=== PATIENT | female | born 1935 | race Caucasian/White ===

== ENCOUNTER 2023-10-04 17:22 | Inpatient (IN) | payer MEDICARE, OTHER ==
[~2023-10-04] VITALS: Ht 160 cm; Wt 39.0 kg
[2023-10-04] MEDS: IV NORMAL SALINE 500 ML BAG IV ONE (18:12)
[2023-10-04 18:15] LABS: BASOPHILS # (AUTO) 0.4 K/UL (0.0-0.2); BASOPHILS % (AUTO) 1.4 % (0.0-2.0); EOSINOPHILS # (AUTO) 0.2 K/uL (0.0-0.7); EOSINOPHILS % (AUTO) 0.8 % (0.0-7.0); HEMATOCRIT 22.3 % (31.2-41.9); LYMPHOCYTES # (AUTO) 1.1 K/uL (0.8-4.8); LYMPHOCYTES % (AUTO) 4.2 % (20.5-51.5); MEAN CORPUSCULAR HEMOGLOBIN 30.5 uug (24.7-32.8); MEAN CORPUSCULAR HGB CONC 32 g/dL (32.3-35.6); MEAN CORPUSCULAR VOLUME 95.6 fL (75.5-95.3); MONOCYTES # (AUTO) 0.9 K/uL (0.1-1.30); MONOCYTES % (AUTO) 3.5 % (0.0-11.0); NEUTROPHILS # (AUTO) 23.2 K/uL (1.8-8.9); NEUTROPHILS % (AUTO) 90.1 % (38.5-71.5); PLATELET COUNT (AUTO) 178 K/uL (179-408); RED CELL DISTRIBUTION WIDTH 20.5 % (12.3-17.7); WHITE BLOOD COUNT (AUTO) 25.8 K/uL (3.8-11.8)
[2023-10-04 18:22] LABS: CALCIUM 7.8 mg/dL (8.5-10.1); CARBON DIOXIDE 19 mmol/L (21-32); CHLORIDE 106 mmol/L (98-107); CREATININE 2.2 mg/dL (0.6-1.3); GLUCOSE 108 mg/dL (74-106); SODIUM SERUM 138 mmol/L (136-145); UREA NITROGEN, BLOOD 27 mg/dL (7-18)
[2023-10-04 18:34] LABS: DIFFERENTIAL COMMENT 1; RED BLOOD CELL COUNT(AUTO) 2.34 MIL/uL (3.63-4.92)
[2023-10-04 18:35] LABS: ALANINE AMINOTRANSFERASE 38 U/L (14-59); ALBUMIN 2.8 g/dL (3.4-5.0); ALKALINE PHOSPHATASE 451 U/L (50-136); ASPARTATE AMINOTRANSFERASE 28 U/L (15-37); BILIRUBIN,TOTAL 0.5 mg/dL (0.2-1.0); NT-PRO BNP 902 pg/mL (0-125)
[2023-10-04 18:36] LABS: HEMOGLOBIN 7.1 g/dL (10.9-14.3)
[2023-10-04] MEDS: IV NORMAL SALINE 1000 ML BAG IV ONE (19:29)
[2023-10-04] MEDS ORDERED: ONDA-104 PO (21:41)
[2023-10-04] MEDS ORDERED: ALPR0.255 PO (21:41)
[2023-10-04] MEDS ORDERED: FURO40TA5 PO (21:41)
[2023-10-04] MEDS ORDERED: EZET10TA15 PO (21:41)
[2023-10-04] MEDS ORDERED: OMEP40CA21 PO (21:41)
[2023-10-04] MEDS ORDERED: PROP20TA7 PO (21:41)
[2023-10-04] MEDS ORDERED: SENN8.6T19 PO (21:41)
[2023-10-04] MEDS ORDERED: LOSA50TA39 PO (21:41)
[2023-10-04] MEDS ORDERED: BISA5TAB10 PO (21:41)
[2023-10-04] MEDS ORDERED: ASPI81TA31 PO (21:41)
[2023-10-04] MEDS ORDERED: SERT25TA PO (21:41)
[2023-10-04] MEDS ORDERED: SUCR1TAB PO (21:41)
[2023-10-04] MEDS ORDERED: MEGE400O5 PO (21:41)
[2023-10-04] MEDS ORDERED: AMLO10TA59 PO (21:41)
[2023-10-04] MEDS ORDERED: QUET100T PO (21:41)
[2023-10-04] MEDS ORDERED: HYDR500C2 PO (21:41)
[2023-10-04] MEDS ORDERED: VIT1TABL46 PO (21:41)
[2023-10-04] MEDS ORDERED: BISACODYL 5 MG TABLET.DR PO PRN (22:30)
[2023-10-04] MEDS ORDERED: TEMAZEPAM 15 MG CAPSULE PO PRN (22:30)
[2023-10-04] MEDS ORDERED: ONDANSETRON 4 MG/2 ML VIAL IV PRN (22:30)
[2023-10-04] MEDS ORDERED: ALPRAZOLAM 0.25 MG TABLET PO SCH (22:30)
[2023-10-04] MEDS: IV NS 1000 ML 1,000 ML IV PRN (23:40)
[2023-10-04] MEDS: ACETAMINOPHEN 325 MG TABLET PO PRN (23:59)
[2023-10-05] VITALS: BP 100/48; TEMP 98; O2SAT 93
[2023-10-05] MEDS: ALPRAZOLAM 0.25 MG TABLET PO SCH (00:08)
[2023-10-05 05:04] VITALS: BP 104/57; TEMP 98.2; O2SAT 93
[2023-10-05] MEDS ORDERED: TEMAZEPAM 15 MG CAPSULE PO PRN (05:45)
[2023-10-05] MEDS: PANTOPRAZOLE SODIUM 40 MG TABLET.DR PO SCH (06:18)
[2023-10-05 08:00] VITALS: BP 98/59; TEMP 97.8; O2SAT 94
[2023-10-05 08:00] LABS: LYMPHOCYTES # (AUTO) 1.1 K/uL (0.8-4.8); WHITE BLOOD COUNT (AUTO) 25.2 K/uL (3.8-11.8)
[2023-10-05 08:02] LABS: BASOPHILS # (AUTO) 0.2 K/UL (0.0-0.2); BASOPHILS % (AUTO) 0.8 % (0.0-2.0); EOSINOPHILS # (AUTO) 0.2 K/uL (0.0-0.7); EOSINOPHILS % (AUTO) 0.8 % (0.0-7.0); LYMPHOCYTES % (AUTO) 4.5 % (20.5-51.5); MEAN CORPUSCULAR HEMOGLOBIN 30.1 uug (24.7-32.8); MEAN CORPUSCULAR HGB CONC 31 g/dL (32.3-35.6); MEAN CORPUSCULAR VOLUME 95.7 fL (75.5-95.3); MONOCYTES # (AUTO) 0.8 K/uL (0.1-1.30); MONOCYTES % (AUTO) 3.3 % (0.0-11.0); NEUTROPHILS # (AUTO) 22.8 K/uL (1.8-8.9); NEUTROPHILS % (AUTO) 90.6 % (38.5-71.5); PLATELET COUNT (AUTO) 155 K/uL (179-408); RED CELL DISTRIBUTION WIDTH 19.9 % (12.3-17.7)
[2023-10-05 08:09] LABS: THYROID STIMULATING HORMONE 2.194 mIU/mL (0.358-3.740)
[2023-10-05] MEDS: SERTRALINE HCL 50 MG TABLET PO SCH (08:19)
[2023-10-05] MEDS: FOLIC ACID/VITAMIN B COMP W-C TABLET PO SCH (08:19)
[2023-10-05 08:24] LABS: IRON, SERUM 39 ug/dL (50-175)
[2023-10-05 08:40] LABS: ALANINE AMINOTRANSFERASE 40 U/L (14-59); ALBUMIN 2.4 g/dL (3.4-5.0); ALKALINE PHOSPHATASE 422 U/L (50-136); ASPARTATE AMINOTRANSFERASE 29 U/L (15-37); BILIRUBIN,TOTAL 0.3 mg/dL (0.2-1.0); CALCIUM 7.5 mg/dL (8.5-10.1); CARBON DIOXIDE 18 mmol/L (21-32); CHLORIDE 114 mmol/L (98-107); CHOLESTEROL 72 mg/dL (<200); CREATININE 1.9 mg/dL (0.6-1.3); GLUCOSE 77 mg/dL (74-106); HDL CHOLESTEROL 33 mg/dL (40-60); MAGNESIUM 1.9 mg/dL (1.8-2.4); PHOSPHOROUS 3.3 mg/dL (2.5-4.9); POTASSIUM 3.7 mmol/L (3.5-5.1); SODIUM SERUM 143 mmol/L (136-145); TOTAL PROTEIN, SERUM 5.9 g/dL (6.4-8.2); TRIGLYCERIDES 40 MG/DL (30-150); UREA NITROGEN, BLOOD 25 mg/dL (7-18)
[2023-10-05 09:01] LABS: DIFFERENTIAL COMMENT 1; HEMATOCRIT 19.3 % (31.2-41.9); HEMOGLOBIN 6.1 g/dL (10.9-14.3); RED BLOOD CELL COUNT(AUTO) 2.01 MIL/uL (3.63-4.92)
[2023-10-05 12:00] VITALS: BP 113/54; TEMP 97.6; O2SAT 97
[2023-10-05 14:47] LABS: BAND % (MANUAL) 4 % (0-10); LYMPHOCYTES % (MANUAL) 6 % (20-40); MONOCYTES % (MANUAL) 2 % (2-10); NEUTROPHILS % (MANUAL) 88 % (42-75)
[2023-10-05 14:48] LABS: ANISOCYTOSIS 1+; HYPOCHROMASIA 1+; PLATELET ESTIMATE ADEQUATE
[2023-10-05] MEDS: LORAZEPAM 2 MG/1 ML VIAL IV PRN (15:03)
[2023-10-05] MEDS ORDERED: PIPERACILLIN/TAZO 2.25 G in IV DEXTROSE 5% 50 ML IV SCH (15:30)
[2023-10-05 16:00] VITALS: BP 122/49; TEMP 98.2; O2SAT 97
[2023-10-05] MEDS: PIPERACILLIN SODIUM/TAZOBACTAM 3.375 G in IV DEXTROSE 5% 100 ML IV SCH (16:26)
[2023-10-05 20:00] VITALS: BP 108/54; TEMP 98; O2SAT 94
[2023-10-05] MEDS: DOCUSATE SODIUM 100 MG CAPSULE PO SCH (20:05)
[2023-10-06] VITALS: BP 127/61; TEMP 98.5; O2SAT 96
[2023-10-06 05:23] VITALS: BP 121/63; TEMP 98.3; O2SAT 92
[2023-10-06 06:52] LABS: BASOPHILS # (AUTO) 0.2 K/UL (0.0-0.2); EOSINOPHILS # (AUTO) 0.4 K/uL (0.0-0.7)
[2023-10-06 06:54] LABS: BASOPHILS % (AUTO) 0.7 % (0.0-2.0); EOSINOPHILS % (AUTO) 1.1 % (0.0-7.0); HEMOGLOBIN 8.4 g/dL (10.9-14.3); LYMPHOCYTES # (AUTO) 1.2 K/uL (0.8-4.8); LYMPHOCYTES % (AUTO) 3.5 % (20.5-51.5); MEAN CORPUSCULAR HEMOGLOBIN 29.7 uug (24.7-32.8); MEAN CORPUSCULAR HGB CONC 32 g/dL (32.3-35.6); MEAN CORPUSCULAR VOLUME 91.5 fL (75.5-95.3); MONOCYTES % (AUTO) 3.1 % (0.0-11.0); NEUTROPHILS # (AUTO) 31.1 K/uL (1.8-8.9); NEUTROPHILS % (AUTO) 91.6 % (38.5-71.5); PLATELET COUNT (AUTO) 184 K/uL (179-408); RED BLOOD CELL COUNT(AUTO) 2.84 MIL/uL (3.63-4.92); RED CELL DISTRIBUTION WIDTH 21.4 % (12.3-17.7)
[2023-10-06 07:00] LABS: DIFFERENTIAL COMMENT 1
[2023-10-06 07:12] LABS: CALCIUM 7.9 mg/dL (8.5-10.1); CARBON DIOXIDE 18 mmol/L (21-32); CHLORIDE 111 mmol/L (98-107); CREATININE 1.7 mg/dL (0.6-1.3); GLUCOSE 78 mg/dL (74-106); MAGNESIUM 1.9 mg/dL (1.8-2.4); PHOSPHOROUS 3.3 mg/dL (2.5-4.9); POTASSIUM 3.6 mmol/L (3.5-5.1); SODIUM SERUM 143 mmol/L (136-145); UREA NITROGEN, BLOOD 22 mg/dL (7-18)
[2023-10-06 11:50] VITALS: BP 120/69; TEMP 98; O2SAT 96
[2023-10-06 12:44] LABS: BAND % (MANUAL) 3 % (0-10); LYMPHOCYTES % (MANUAL) 4 % (20-40); MONOCYTES % (MANUAL) 5 % (2-10); NEUTROPHILS % (MANUAL) 88 % (42-75); PLATELET ESTIMATE ADEQUATE
[2023-10-06 12:45] LABS: ANISOCYTOSIS 1+; OVALOCYTES 1+; TEAR DROP CELLS 1+
[2023-10-06] MEDS ORDERED: SUMA25TA10 PO (12:46)
[2023-10-06] MEDS ORDERED: MEGE20TA4 PO (12:46)
[2023-10-06] MEDS ORDERED: FERR325T28 PO (12:46)
[2023-10-06] MEDS ORDERED: METO-356 PO (12:46)
[2023-10-06 13:24] LABS: *BILIRUBIN,URIN NEGATIVE (NEGATIVE); *BLOOD, URINE NEGATIVE (NEGATIVE); *CLARITY,URINE CLEAR (CLEAR); *COLOR,URINE YELLOW (YELLOW); *KETONES,URINE NEGATIVE (NEGATIVE); *PROTEIN,URINE 2+ (NEGATIVE); *UROBILINOGEN,URINE 0.2 E.U./dl (NORMAL); LEUKOCYTE ESTERASE ,URINE NEGATIVE (NEGATIVE); NITRITE, URINE NEGATIVE (NEGATIVE); PH,URINE 5.5 (5.0-8.0); UGLUCOSE NEGATIVE (NEGATIVE)
[2023-10-06 14:30] LABS: BACTERIA,URINE FEW /HPF (NONE SEEN); SQUAMOUS EPITHELIAL CELL,UR FEW /HPF (NONE SEEN); WBC,URINE 0-3 /HPF (0-3)
[2023-10-06] MEDS ORDERED: CALC500T88 PO (14:35)
[2023-10-06] MEDS ORDERED: PROP80TA4 PO (14:35)
[2023-10-06] MEDS ORDERED: DOCU100C36 PO (14:35)
[2023-10-06] MEDS ORDERED: ACET-2030 PO (14:35)
[2023-10-06] MEDS ORDERED: ASCO-495 PO (14:35)
[2023-10-06] MEDS ORDERED: VITAMIN D3 PO (14:35)
[2023-10-06 15:48] VITALS: BP 116/64; TEMP 98; O2SAT 97
[2023-10-06 20:47] VITALS: BP 135/72; TEMP 99; O2SAT 92
[2023-10-07 00:29] VITALS: BP 114/76; TEMP 97.8; O2SAT 95
[2023-10-07 04:42] VITALS: BP 134/60; TEMP 97.4; O2SAT 95
[2023-10-07 07:52] VITALS: BP 122/84; TEMP 97.9; O2SAT 98
[2023-10-07 11:55] VITALS: BP 123/67; TEMP 97.9; O2SAT 97
[2023-10-07 15:16] LABS: BASOPHILS # (AUTO) 0.3 K/UL (0.0-0.2); BASOPHILS % (AUTO) 0.7 % (0.0-2.0); DIFFERENTIAL COMMENT 0; EOSINOPHILS # (AUTO) 0.5 K/uL (0.0-0.7); EOSINOPHILS % (AUTO) 1.2 % (0.0-7.0); HEMATOCRIT 26.5 % (31.2-41.9); HEMOGLOBIN 8.2 g/dL (10.9-14.3); LYMPHOCYTES # (AUTO) 1.3 K/uL (0.8-4.8); LYMPHOCYTES % (AUTO) 3.1 % (20.5-51.5); MEAN CORPUSCULAR HGB CONC 31 g/dL (32.3-35.6); MEAN CORPUSCULAR VOLUME 93.1 fL (75.5-95.3); MONOCYTES # (AUTO) 1.6 K/uL (0.1-1.30); MONOCYTES % (AUTO) 4.1 % (0.0-11.0); NEUTROPHILS % (AUTO) 90.9 % (38.5-71.5); PLATELET COUNT (AUTO) 227 K/uL (179-408); RED BLOOD CELL COUNT(AUTO) 2.85 MIL/uL (3.63-4.92); RED CELL DISTRIBUTION WIDTH 21.7 % (12.3-17.7)
[2023-10-07 15:26] LABS: ALANINE AMINOTRANSFERASE 32 U/L (14-59); ALBUMIN 2.6 g/dL (3.4-5.0); ALKALINE PHOSPHATASE 490 U/L (50-136); ASPARTATE AMINOTRANSFERASE 20 U/L (15-37); BILIRUBIN,TOTAL 0.5 mg/dL (0.2-1.0); CARBON DIOXIDE 20 mmol/L (21-32); CHLORIDE 109 mmol/L (98-107); CREATININE 1.6 mg/dL (0.6-1.3); GLUCOSE 123 mg/dL (74-106); MAGNESIUM 1.7 mg/dL (1.8-2.4); PHOSPHOROUS 3.7 mg/dL (2.5-4.9); POTASSIUM 3.3 mmol/L (3.5-5.1); SODIUM SERUM 143 mmol/L (136-145); TOTAL PROTEIN, SERUM 6.6 g/dL (6.4-8.2); UREA NITROGEN, BLOOD 17 mg/dL (7-18)
[2023-10-07 15:27] LABS: WHITE BLOOD COUNT (AUTO) 40.6 K/uL (3.8-11.8)
[2023-10-07 15:46] VITALS: BP 132/68; TEMP 97.9; O2SAT 96
[2023-10-07 16:19] LABS: EOSINOPHILS % (MANUAL) 1 % (0-8); LYMPHOCYTES % (MANUAL) 4 % (20-40); MONOCYTES % (MANUAL) 3 % (2-10); NEUTROPHILS % (MANUAL) 92 % (42-75)
[2023-10-07 16:20] LABS: ANISOCYTOSIS 1+; PLATELET ESTIMATE ADEQUATE
[2023-10-07] MEDS: HYDROXYUREA 500 MG CAPSULE PO SCH (17:41)
[2023-10-07 21:31] VITALS: BP 112/61; TEMP 98.6; O2SAT 94
[2023-10-08 05:27] VITALS: BP 131/61; TEMP 97.9; O2SAT 95
[2023-10-08 06:37] LABS: BASOPHILS # (AUTO) 0.2 K/UL (0.0-0.2); BASOPHILS % (AUTO) 0.5 % (0.0-2.0); EOSINOPHILS # (AUTO) 0.3 K/uL (0.0-0.7); HEMATOCRIT 24.2 % (31.2-41.9); HEMOGLOBIN 7.7 g/dL (10.9-14.3); LYMPHOCYTES # (AUTO) 1.2 K/uL (0.8-4.8); LYMPHOCYTES % (AUTO) 3.7 % (20.5-51.5); MEAN CORPUSCULAR HEMOGLOBIN 29.6 uug (24.7-32.8); MEAN CORPUSCULAR HGB CONC 32 g/dL (32.3-35.6); MEAN CORPUSCULAR VOLUME 92.3 fL (75.5-95.3); MONOCYTES # (AUTO) 1.4 K/uL (0.1-1.30); MONOCYTES % (AUTO) 4.2 % (0.0-11.0); NEUTROPHILS # (AUTO) 29.7 K/uL (1.8-8.9); NEUTROPHILS % (AUTO) 90.6 % (38.5-71.5); PLATELET COUNT (AUTO) 196 K/uL (179-408); RED BLOOD CELL COUNT(AUTO) 2.62 MIL/uL (3.63-4.92); RED CELL DISTRIBUTION WIDTH 21.2 % (12.3-17.7)
[2023-10-08 06:42] LABS: DIFFERENTIAL COMMENT 1; WHITE BLOOD COUNT (AUTO) 32.8 K/uL (3.8-11.8)
[2023-10-08 06:57] LABS: CALCIUM 7.6 mg/dL (8.5-10.1); CREATININE 1.3 mg/dL (0.6-1.3); MAGNESIUM 1.7 mg/dL (1.8-2.4); PHOSPHOROUS 3.3 mg/dL (2.5-4.9); POTASSIUM 3.1 mmol/L (3.5-5.1)
[2023-10-08 08:00] VITALS: BP 122/68; TEMP 98.8; O2SAT 97
[2023-10-08 08:21] LABS: *RHEUMATOID FACTOR SCREEN NEGATIVE (NEGATIVE)
[2023-10-08 12:00] VITALS: BP 101/87; TEMP 98.2; O2SAT 97
[2023-10-08] MEDS: POTASSIUM CHLORIDE 20 MEQ TAB.PRT.SR PO ONE (12:04)
[2023-10-08] MEDS: MAGNESIUM OXIDE 400 MG TABLET PO ONE (12:05)
[2023-10-08 16:00] VITALS: BP 132/65; TEMP 98.2; O2SAT 97
[2023-10-08 18:26] LABS: BAND % (MANUAL) 14 % (0-10); EOSINOPHILS % (MANUAL) 2 % (0-8); LYMPHOCYTES % (MANUAL) 5 % (20-40); METAMYELOCYTES % 2 % (0-1); MONOCYTES % (MANUAL) 4 % (2-10); NEUTROPHILS % (MANUAL) 73 % (42-75); PLATELET ESTIMATE ADEQUATE
[2023-10-08 18:27] LABS: ANISOCYTOSIS 2+
[2023-10-08] MEDS: IV NS 1000 ML 1,000 ML IV PRN (18:30)
[2023-10-08 18:50] LABS: C-REACTIVE PROTEIN 6.48 mg/dL (0.00-0.30)
[2023-10-08 20:00] VITALS: BP 128/67; TEMP 97.7; O2SAT 93
[2023-10-09 00:32] VITALS: BP 134/68; TEMP 97.8; O2SAT 93
[2023-10-09 04:30] VITALS: BP 111/45; TEMP 98.1; O2SAT 94
[2023-10-09 07:34] LABS: CARBON DIOXIDE 20 mmol/L (21-32); CHLORIDE 108 mmol/L (98-107); CREATININE 1.4 mg/dL (0.6-1.3); GLUCOSE 86 mg/dL (74-106); MAGNESIUM 1.7 mg/dL (1.8-2.4); POTASSIUM 3.2 mmol/L (3.5-5.1); SODIUM SERUM 140 mmol/L (136-145); UREA NITROGEN, BLOOD 14 mg/dL (7-18)
[2023-10-09 08:00] VITALS: BP 135/74; TEMP 97; O2SAT 98
[2023-10-09 09:06] LABS: *IMMUNOGLOBULIN G, SERUM 968 mg/dL (586-1602); IMMUNOGLOBULIN A, SERUM 366 mg/dL (64-422); IMMUNOGLOBULIN M, SERUM 60 mg/dL (26-217)
[2023-10-09] MEDS: MAGNESIUM SULFATE/D5W 100 ML IV SCH (11:27)
[2023-10-09] MEDS: POTASSIUM CHLORIDE 20 MEQ POWDER PACKET PO ONE (11:28)
[2023-10-09 12:00] VITALS: BP 103/57; TEMP 97.2; O2SAT 97
[2023-10-09 16:00] VITALS: BP 138/56; TEMP 98.2; O2SAT 97
[2023-10-09 20:00] VITALS: BP 138/71; TEMP 98; O2SAT 94
[2023-10-09] MEDS: ACIDOPHILUS/BULGARICUS CHEW TAB PO SCH (21:24)
[2023-10-10] MEDS: HYDROCODONE/APAP 5-325MG TABLET PO PRN (01:59)
[2023-10-10 06:01] VITALS: BP 137/78; TEMP 97.4; O2SAT 94
[2023-10-10 06:06] LABS: FOLATE (FOLIC ACID), SERUM >20.0 ng/mL (>3.0)
[2023-10-10] MEDS ORDERED: LORAZEPAM 2 MG/1 ML VIAL IV PRN (06:30)
[2023-10-10 08:00] LABS: BASOPHILS # (AUTO) 0.3 K/UL (0.0-0.2); BASOPHILS % (AUTO) 0.9 % (0.0-2.0); EOSINOPHILS # (AUTO) 0.3 K/uL (0.0-0.7); HEMATOCRIT 22.3 % (31.2-41.9); LYMPHOCYTES # (AUTO) 1.2 K/uL (0.8-4.8); LYMPHOCYTES % (AUTO) 3.9 % (20.5-51.5); MEAN CORPUSCULAR HEMOGLOBIN 29.3 uug (24.7-32.8); MEAN CORPUSCULAR HGB CONC 32 g/dL (32.3-35.6); MEAN CORPUSCULAR VOLUME 91.8 fL (75.5-95.3); MONOCYTES # (AUTO) 1.2 K/uL (0.1-1.30); NEUTROPHILS # (AUTO) 27.6 K/uL (1.8-8.9); NEUTROPHILS % (AUTO) 90.2 % (38.5-71.5); PLATELET COUNT (AUTO) 180 K/uL (179-408); RED CELL DISTRIBUTION WIDTH 21.5 % (12.3-17.7)
[2023-10-10 08:09] LABS: DIFFERENTIAL COMMENT 1; HEMOGLOBIN 7.1 g/dL (10.9-14.3); RED BLOOD CELL COUNT(AUTO) 2.43 MIL/uL (3.63-4.92)
[2023-10-10 08:11] LABS: WHITE BLOOD COUNT (AUTO) 30.6 K/uL (3.8-11.8)
[2023-10-10 08:15] LABS: ALBUMIN 2.4 g/dL (3.4-5.0); BILIRUBIN,TOTAL 0.7 mg/dL (0.2-1.0); CALCIUM 8.4 mg/dL (8.5-10.1); CREATININE 1.3 mg/dL (0.6-1.3); MAGNESIUM 2.2 mg/dL (1.8-2.4); PHOSPHOROUS 3.4 mg/dL (2.5-4.9); POTASSIUM 3.6 mmol/L (3.5-5.1); TOTAL PROTEIN, SERUM 6.1 g/dL (6.4-8.2)
[2023-10-10 09:06] LABS: ANTI-NUCLEAR AB DIRECT Positive (Negative)
[2023-10-10 09:07] LABS: *RNP ANTIBODIES 1.4 AI (0.0-0.9); *SJOGREN'S ANTI-SS-A <0.2 AI (0.0-0.9); *SJOGREN'S ANTI-SS-B <0.2 AI (0.0-0.9); *SMITH ANTIBODIES <0.2 AI (0.0-0.9); ANTI-DNA(DS) AB, QN <1 IU/mL (0-9)
[2023-10-10 11:00] LABS: BAND % (MANUAL) 2 % (0-10); EOSINOPHILS % (MANUAL) 1 % (0-8); LYMPHOCYTES % (MANUAL) 2 % (20-40); MONOCYTES % (MANUAL) 5 % (2-10); NEUTROPHILS % (MANUAL) 90 % (42-75)
[2023-10-10 11:01] LABS: ANISOCYTOSIS 1+; PLATELET ESTIMATE ADEQUATE; TEAR DROP CELLS 1+
[2023-10-10 11:12] VITALS: BP 130/59; TEMP 98.6; O2SAT 94
[2023-10-10] MEDS: ENSURE ENLIVE (VAN) 240 ML LIQUID PO SCH (14:37)
[2023-10-10 15:56] VITALS: BP 136/70; TEMP 97.5; O2SAT 95
[2023-10-10 21:53] VITALS: BP 130/52; TEMP 97; O2SAT 94
[2023-10-10 23:00] LABS: *OCCULT BLOOD STOOL NEGATIVE (NEGATIVE)
[2023-10-11 05:11] LABS: A/G RATIO 1.1 (0.7-1.7); ALBUMIN 2.9 g/dL (2.9-4.4); ALPHA-1-GLOBULIN 0.2 g/dL (0.0-0.4); ALPHA-2-GLOBULIN 0.8 g/dL (0.4-1.0); BETA GLOBULIN 0.8 g/dL (0.7-1.3); GAMMA GLOBULIN 0.8 g/dL (0.4-1.8); GLOBULIN, TOTAL 2.7 g/dL (2.2-3.9); M-SPIKE Not Observed g/dL (Not Observed)
[2023-10-11 05:32] VITALS: BP 145/79; TEMP 98.9; O2SAT 94
[2023-10-11 07:13] LABS: BASOPHILS # (AUTO) 0.2 K/UL (0.0-0.2); BASOPHILS % (AUTO) 0.5 % (0.0-2.0); HEMOGLOBIN 7.5 g/dL (10.9-14.3); LYMPHOCYTES # (AUTO) 1.1 K/uL (0.8-4.8); LYMPHOCYTES % (AUTO) 3.3 % (20.5-51.5); NEUTROPHILS # (AUTO) 29.5 K/uL (1.8-8.9)
[2023-10-11 07:14] LABS: EOSINOPHILS # (AUTO) 0.4 K/uL (0.0-0.7); EOSINOPHILS % (AUTO) 1.1 % (0.0-7.0); HEMATOCRIT 23.4 % (31.2-41.9); MEAN CORPUSCULAR HEMOGLOBIN 29.7 uug (24.7-32.8); MEAN CORPUSCULAR HGB CONC 32 g/dL (32.3-35.6); MEAN CORPUSCULAR VOLUME 92.7 fL (75.5-95.3); MONOCYTES % (AUTO) 3.2 % (0.0-11.0); NEUTROPHILS % (AUTO) 91.9 % (38.5-71.5); PLATELET COUNT (AUTO) 170 K/uL (179-408); RED BLOOD CELL COUNT(AUTO) 2.53 MIL/uL (3.63-4.92); RED CELL DISTRIBUTION WIDTH 20.7 % (12.3-17.7)
[2023-10-11 07:18] LABS: DIFFERENTIAL COMMENT 1
[2023-10-11 07:22] LABS: WHITE BLOOD COUNT (AUTO) 32.2 K/uL (3.8-11.8)
[2023-10-11 07:23] LABS: CREATININE 1.3 mg/dL (0.6-1.3); PHOSPHOROUS 3.4 mg/dL (2.5-4.9); POTASSIUM 3.4 mmol/L (3.5-5.1)
[2023-10-11] MEDS: POTASSIUM CHLORIDE 20 MEQ TAB.PRT.SR PO ONE (09:49)
[2023-10-11 11:28] VITALS: BP 114/57; TEMP 98.2; O2SAT 98
[2023-10-11 15:08] LABS: FREE KAPPA LT CHAINS SERUM 62.1 mg/L (3.3-19.4); FREE LAMBDA LT CHAIN SERUM 36.3 mg/L (5.7-26.3); KAPPA/LAMBDA RATIO SERUM 1.71 (0.26-1.65)
[2023-10-11 16:00] VITALS: BP 148/77; TEMP 97.6; O2SAT 97
[2023-10-11 16:09] LABS: BAND % (MANUAL) 1 % (0-10); EOSINOPHILS % (MANUAL) 1 % (0-8); LYMPHOCYTES % (MANUAL) 4 % (20-40); MONOCYTES % (MANUAL) 3 % (2-10); NEUTROPHILS % (MANUAL) 91 % (42-75); PLATELET ESTIMATE ADEQUATE
[2023-10-11 16:10] LABS: ANISOCYTOSIS 1+; HYPOCHROMASIA 1+; OVALOCYTES 1+; TEAR DROP CELLS 1+
[2023-10-11 21:49] VITALS: BP 130/72; TEMP 98.7; O2SAT 95
[2023-10-12 06:34] VITALS: BP 130/72; TEMP 99; O2SAT 93
[2023-10-12 07:28] LABS: CALCIUM 8.3 mg/dL (8.5-10.1); CREATININE 1.2 mg/dL (0.6-1.3); POTASSIUM 3.4 mmol/L (3.5-5.1)
[2023-10-12 08:03] LABS: BASOPHILS # (AUTO) 0.4 K/UL (0.0-0.2); BASOPHILS % (AUTO) 1.2 % (0.0-2.0); DIFFERENTIAL COMMENT 0; EOSINOPHILS # (AUTO) 0.4 K/uL (0.0-0.7); HEMATOCRIT 24.3 % (31.2-41.9); HEMOGLOBIN 7.6 g/dL (10.9-14.3); LYMPHOCYTES # (AUTO) 1.1 K/uL (0.8-4.8); LYMPHOCYTES % (AUTO) 3.1 % (20.5-51.5); MEAN CORPUSCULAR HEMOGLOBIN 29.1 uug (24.7-32.8); MEAN CORPUSCULAR HGB CONC 31 g/dL (32.3-35.6); MEAN CORPUSCULAR VOLUME 92.9 fL (75.5-95.3); MONOCYTES # (AUTO) 1.3 K/uL (0.1-1.30); MONOCYTES % (AUTO) 3.9 % (0.0-11.0); NEUTROPHILS # (AUTO) 31.3 K/uL (1.8-8.9); NEUTROPHILS % (AUTO) 90.8 % (38.5-71.5); PLATELET COUNT (AUTO) 201 K/uL (179-408); RED BLOOD CELL COUNT(AUTO) 2.62 MIL/uL (3.63-4.92); RED CELL DISTRIBUTION WIDTH 20.7 % (12.3-17.7)
[2023-10-12 08:13] LABS: WHITE BLOOD COUNT (AUTO) 34.5 K/uL (3.8-11.8)
[2023-10-12] MEDS: POTASSIUM CHLORIDE 20 MEQ TAB.PRT.SR PO ONE (09:48)
[2023-10-12 10:00] VITALS: BP 135/64; TEMP 98.6; O2SAT 95
[2023-10-12 12:07] VITALS: BP 133/69; TEMP 97.9; O2SAT 97
[2023-10-12 15:40] LABS: BAND % (MANUAL) 3 % (0-10); LYMPHOCYTES % (MANUAL) 7 % (20-40); MONOCYTES % (MANUAL) 3 % (2-10)
[2023-10-12 15:41] LABS: ANISOCYTOSIS 2+; EOSINOPHILS % (MANUAL) 1 % (0-8); NEUTROPHILS % (MANUAL) 86 % (42-75); PLATELET ESTIMATE ADEQUATE
[2023-10-12 16:07] VITALS: BP 140/72; TEMP 97.8; O2SAT 97
[2023-10-12] MEDS ORDERED: EPOETIN ALFA 10,000 UNITS/ML VIAL SQ SCH (17:45)
[2023-10-12] MEDS: EPOETIN ALFA-EPBX 10,000 UNIT/ML VIAL SQ SCH (18:56)
[2023-10-12 20:17] VITALS: BP 126/71; TEMP 98.8; O2SAT 95
[2023-10-13 05:54] VITALS: BP 122/64; TEMP 98.7; O2SAT 96
[2023-10-13 06:43] LABS: BASOPHILS # (AUTO) 0.2 K/UL (0.0-0.2); BASOPHILS % (AUTO) 0.7 % (0.0-2.0); EOSINOPHILS # (AUTO) 0.3 K/uL (0.0-0.7); HEMATOCRIT 23.8 % (31.2-41.9); HEMOGLOBIN 7.5 g/dL (10.9-14.3); LYMPHOCYTES # (AUTO) 1.4 K/uL (0.8-4.8); LYMPHOCYTES % (AUTO) 4.6 % (20.5-51.5); MEAN CORPUSCULAR HEMOGLOBIN 29.7 uug (24.7-32.8); MEAN CORPUSCULAR HGB CONC 31 g/dL (32.3-35.6); MEAN CORPUSCULAR VOLUME 94.9 fL (75.5-95.3); MONOCYTES % (AUTO) 3.2 % (0.0-11.0); NEUTROPHILS # (AUTO) 27.1 K/uL (1.8-8.9); NEUTROPHILS % (AUTO) 90.5 % (38.5-71.5); PLATELET COUNT (AUTO) 173 K/uL (179-408); RED BLOOD CELL COUNT(AUTO) 2.51 MIL/uL (3.63-4.92); WHITE BLOOD COUNT (AUTO) 29.9 K/uL (3.8-11.8)
[2023-10-13 06:47] LABS: DIFFERENTIAL COMMENT 1
[2023-10-13 06:54] LABS: CALCIUM 8.3 mg/dL (8.5-10.1); CREATININE 1.3 mg/dL (0.6-1.3); POTASSIUM 3.6 mmol/L (3.5-5.1)
[2023-10-13 07:20] LABS: ANISOCYTOSIS 2+; BAND % (MANUAL) 1 % (0-10); LYMPHOCYTES % (MANUAL) 5 % (20-40); MONOCYTES % (MANUAL) 2 % (2-10); NEUTROPHILS % (MANUAL) 92 % (42-75); PLATELET ESTIMATE ADEQUATE
[2023-10-13 07:21] LABS: TEAR DROP CELLS 1+
[2023-10-13 07:22] LABS: OVALOCYTES 1+
[2023-10-13] MEDS ORDERED: FOLI0.8T2 PO (11:02)
[2023-10-13] MEDS ORDERED: PANT40TA49 PO (11:02)
[2023-10-13] MEDS ORDERED: HYDR500C PO ×2 (11:02→12:12)
[2023-10-13] MEDS ORDERED: EPOE1000 SQ (11:02)
[2023-10-13] MEDS ORDERED: Lactose-Free Food PO (11:02)
[2023-10-13] MEDS ORDERED: SERT-439 PO (11:02)
[2023-10-13] MEDS ORDERED: ACID1TAB4 PO (11:02)
[2023-10-13 11:56] VITALS: BP 127/86; TEMP 98.6; O2SAT 97
[2023-10-13 16:00] VITALS: BP 133/72; TEMP 97.6; O2SAT 98
[2023-10-13] MEDS: SUMATRIPTAN SUCCINATE 50 MG TABLET PO ONE (17:25)
[2023-10-13 19:15] VITALS: BP 137/70; TEMP 98.2; O2SAT 95
[2023-10-14 05:26] VITALS: BP 144/82; TEMP 97.2; O2SAT 95
[2023-10-14 09:11] LABS: BASOPHILS # (AUTO) 0.1 K/UL (0.0-0.2); BASOPHILS % (AUTO) 0.4 % (0.0-2.0); EOSINOPHILS # (AUTO) 0.2 K/uL (0.0-0.7); EOSINOPHILS % (AUTO) 0.6 % (0.0-7.0); HEMOGLOBIN 7.7 g/dL (10.9-14.3); LYMPHOCYTES # (AUTO) 1.5 K/uL (0.8-4.8); LYMPHOCYTES % (AUTO) 4.2 % (20.5-51.5); MEAN CORPUSCULAR HEMOGLOBIN 28.8 uug (24.7-32.8); MEAN CORPUSCULAR HGB CONC 31 g/dL (32.3-35.6); MEAN CORPUSCULAR VOLUME 93.6 fL (75.5-95.3); MONOCYTES # (AUTO) 1.7 K/uL (0.1-1.30); MONOCYTES % (AUTO) 4.6 % (0.0-11.0); NEUTROPHILS # (AUTO) 32.8 K/uL (1.8-8.9); NEUTROPHILS % (AUTO) 90.2 % (38.5-71.5); PLATELET COUNT (AUTO) 186 K/uL (179-408); RED BLOOD CELL COUNT(AUTO) 2.67 MIL/uL (3.63-4.92); RED CELL DISTRIBUTION WIDTH 21.1 % (12.3-17.7)
[2023-10-14 10:57] LABS: DIFFERENTIAL COMMENT 1
[2023-10-14] MEDS ORDERED: MIRT-121 PO (10:58)
[2023-10-14 11:00] LABS: WHITE BLOOD COUNT (AUTO) 36.4 K/uL (3.8-11.8)
[2023-10-14 11:18] LABS: CARBON DIOXIDE 25 mmol/L (21-32); CHLORIDE 107 mmol/L (98-107); POTASSIUM 3.5 mmol/L (3.5-5.1); SODIUM SERUM 143 mmol/L (136-145)
[2023-10-14 11:19] LABS: CALCIUM 8.5 mg/dL (8.5-10.1); CREATININE 1.1 mg/dL (0.6-1.3); GLUCOSE 85 mg/dL (74-106); UREA NITROGEN, BLOOD 13 mg/dL (7-18)
[2023-10-14] MEDS: ENSURE WITH FIBER 237 ML LIQUID (CHOCOLATE) PO SCH (11:29)
[2023-10-14 12:00] VITALS: BP 123/70; TEMP 97.8; O2SAT 97
[2023-10-14 13:23] LABS: BAND % (MANUAL) 7 % (0-10); EOSINOPHILS % (MANUAL) 1 % (0-8); LYMPHOCYTES % (MANUAL) 4 % (20-40); MONOCYTES % (MANUAL) 4 % (2-10); MYELOCYTES % 1 % (0-0); NEUTROPHILS % (MANUAL) 83 % (42-75)
[2023-10-14 13:24] LABS: PLATELET ESTIMATE ADEQUATE
[2023-10-14 13:25] LABS: ANISOCYTOSIS 2+; TEAR DROP CELLS 1+
[2023-10-14] MEDS ORDERED: DOCU-141 PO (14:07)
[2023-10-14] MEDS ORDERED: MIRTAZAPINE 15 MG TABLET PO SCH (21:00)
[2023-10-15] MEDS ORDERED: HYDROXYUREA 500 MG CAPSULE PO SCH (09:00)
== END 2023-10-14 15:30 | disposition home health service (06) | DRG 834 ==
LOC: ER 17:24 → TELE3 22:49 → MEDSURG3 10-10
PROVIDERS: ADMIT Internal Medicine; ATTEND Internal Medicine
PROC: 30233N1 Transfusion of Nonautologous Red Blood Cells into Peripheral Vein, Percutaneous Approach (ICD-10-PCS; principal; 2023-10-05)
DX: C95.00 Acute leukemia of unspecified cell type not having achieved remission (principal); E43 Unspecified severe protein-calorie malnutrition; G93.41 Metabolic encephalopathy; N17.0 Acute kidney failure with tubular necrosis; Z68.1 Body mass index [BMI] 19.9 or less, adult; F03.93 Unspecified dementia, unspecified severity, with mood disturbance; R62.7 Adult failure to thrive; E86.0 Dehydration; D46.9 Myelodysplastic syndrome, unspecified; D50.9 Iron deficiency anemia, unspecified; E88.09 Other disorders of plasma-protein metabolism, not elsewhere classified; M89.8X9 Other specified disorders of bone, unspecified site; E78.5 Hyperlipidemia, unspecified; I70.0 Atherosclerosis of aorta; E87.6 Hypokalemia; E86.9 Volume depletion, unspecified; M15.9 Polyosteoarthritis, unspecified; Z87.11 Personal history of peptic ulcer disease; I10 Essential (primary) hypertension; R76.8 Other specified abnormal immunological findings in serum; Z79.899 Other long term (current) drug therapy; E83.42 Hypomagnesemia; D63.8 Anemia in other chronic diseases classified elsewhere
CPT/HCPCS: 36415; 70030-TC; 70450; 71045; 71250; 82378; 82668; 82746; 82784; 83550; 83605; 83615; 83735; 84100; 84155; 84165; 84443; 84484; 85025; 85730; 86038; 86140; 86334; 86430; 86850; 86900; 86901; 86920; 87040; 88185; 93005; 93307; A4663; G0378; J0885; J2060; J2543; J3475; J7040; P9016